=== PATIENT | female | born 1990 | race Caucasian/White ===

== ENCOUNTER → 2017-08-30 | Outpatient (REF) | payer OTHER, MEDICAID | LOC: M LAB REF 13:04 | PROVIDERS: ATTEND Advanced Practice Midwife | DX: Z34.82 Encounter for supervision of other normal pregnancy, second trimester (principal) ==

== ENCOUNTER → 2017-09-06 | Outpatient (CLI) | payer OTHER ==
--- NOTE | 2017-09-07 05:09 | REP ---
Clinical: Anatomical evaluation. Comparison: None . Findings: Examination demonstrates a single live intrauterine in cephalic presentation. motion is identified by technologist. Placenta is noted posteriorly and grade zero without evidence for placenta previa or abruption. Amniotic fluid volume is normal. Cervix measures 5.0 cm in length and appears closed. No evidence for nuchal cord. Gestational age by LMP 20 weeks 3 days with KISHORE 01/21/2018 . Gestational age by current measurements 21 weeks 0 days with KISHORE 01/17/2018 . FHR equals 144 beats per minute. BPD 5.0 cm 21 weeks 1 day HC 18.2 cm 20 weeks 4 days AC 14.9 cm 20 weeks 1 day FL 3.9 cm 22 weeks 4 days HL 3.5 cm 22 weeks 0 days HC/AC ratio 1.22 Estimated weight 407 grams ( 75th percentile). Anatomical assessment demonstrates normal structures including cranium, choroid plexus, cavum, cerebellum/posterior fossa, facial features, lungs, diaphragm, stomach, cord insertion/three-vessel cord, kidneys/bladder, spine, and extremities. Impression: Single live intrauterine in breech presentation demonstrating appropriate interval growth. Limited evaluation of the heart and cardiac ventricular outflow tracts noted. Remainder of the anatomical assessment is complete and normal. Signed by Benedict Seals MD 09/07/2017 05:00 A
== END ==
LOC: M SMT 09:05 → EDUNIT# 09:30
PROVIDERS: ATTEND Advanced Practice Midwife
DX: Z36.2 Encounter for other antenatal screening follow-up (principal)

== ENCOUNTER → 2017-10-26 | Outpatient (CLI) | payer OTHER ==
--- NOTE | 2017-10-26 16:20 | REP ---
Obstetric ultrasound for follow-up of anatomy: Comparison is 09/06/2017. On the comparison study the four-chamber view of the heart and the ventricular outflow tracts were not optimally demonstrated. There is a single intrauterine gestation in a vertex presentation. There is movement and cardiac activity with a heart rate of 153 beats per minute. The placenta is posterior. There is no placenta previa or abruptio. The placenta is grade 1 maturity. The amniotic fluid volume subjectively is normal. The amniotic fluid index is 15.2 (9.4 - 22.7). The cervix measures 4.3 cm in length. By today's ultrasound the gestational age is 28 weeks 1 day with an KISHORE of 01/17/2018. By the first ultrasound 27 weeks 4 days with KISHORE of 01/21/2018. weight is 1217 grams (2 pounds, 10 ounces). This is the 61st percentile for 27 weeks 4 days. On the study today the four-chamber view of the heart and left ventricular outflow tract are adequately demonstrated and are unremarkable. The right ventricular cardiac outflow tract is suboptimally at again demonstrated because of lie and maternal body habitus. The remainder of the anatomy was unremarkable previously and is not repeated today. Signed by Neville Pereira MD 10/26/2017 04:12 P
== END ==
LOC: M SMT 10:26
PROVIDERS: ATTEND Advanced Practice Midwife
DX: Z34.82 Encounter for supervision of other normal pregnancy, second trimester (principal)

== ENCOUNTER → 2017-12-13 | Outpatient (CLI) | payer OTHER ==
[2017-12-13 14:52] LABS: BASO % 0.2 % (0.0-1.0); EOS # 0.1 10^3/uL (0.0-0.50); EOS % 0.8 % (0.0-3.0); HEMATOCRIT 33.5 % (36.0-47.0); HEMOGLOBIN 11.3 g/dl (12.0-16.0); IMMATURE GRANULOCYTE # 0.1 10^3/uL (0-0); LYMPH # 2.6 10^3/uL (1.5-6.5); LYMPH % 20.6 % (24.0-44.0); MEAN CORPUSCULAR HEMOGLOBIN 32.6 pg (27.0-33.0); MEAN CORPUSCULAR HGB CONC 33.7 g/dl (32.0-36.5); MEAN CORPUSCULAR VOLUME 96.5 fl (80.0-96.0); MONO # 1.2 10^3/uL (0.0-0.8); MONO % 9.2 % (0.0-5.0); NEUTROPHILS # 8.8 10^3/uL (1.8-7.7); NEUTROPHILS % 68.2 % (36.0-66.0); PLATELET COUNT, AUTOMATED 202 10^3/uL (150-450); RED BLOOD COUNT 3.47 10^6/uL (4.00-5.40); RED CELL DISTRIBUTION WIDTH 12.2 % (11.5-14.5); WHITE BLOOD COUNT 12.8 10^3/uL (4.0-10.0)
[2017-12-13 15:40] LABS: GLUCOSE CHALLENGE TEST 1 HOUR 86 MG/DL (LESS THAN 140)
== END ==
LOC: M SMT 10:30
DX: O09.299 Supervision of pregnancy with other poor reproductive or obstetric history, unspecified trimester (principal); Z3A.36 36 weeks gestation of pregnancy
CPT/HCPCS: 82950

== ENCOUNTER 2018-01-11 05:58 | Inpatient (IN) | payer OTHER ==
[2018-01-11 07:06] LABS: HEMATOCRIT 34.6 % (36.0-47.0); HEMOGLOBIN 11.7 g/dl (12.0-16.0); MEAN CORPUSCULAR HEMOGLOBIN 32.4 pg (27.0-33.0); MEAN CORPUSCULAR HGB CONC 33.8 g/dl (32.0-36.5); MEAN CORPUSCULAR VOLUME 95.8 fl (80.0-96.0); PLATELET COUNT, AUTOMATED 148 10^3/uL (150-450); RED BLOOD COUNT 3.61 10^6/uL (4.00-5.40); RED CELL DISTRIBUTION WIDTH 12.2 % (11.5-14.5); WHITE BLOOD COUNT 9.9 10^3/uL (4.0-10.0)
[2018-01-11] MEDS: LACTATED RINGER'S 1000 ML IV (07:49)
[2018-01-11] MEDS: miSOPROStol 50 MCG 1/2 TAB (S0191) PO ×2 (07:50→11:53)
[2018-01-11] MEDS ORDERED: OXYTOCIN 30 UNITS IN 0.9% NaCl 500ML IV BAG (J2590) As Ordered (19:23)
[2018-01-11] MEDS: OXYTOCIN DRIP 30 UNITS in APPROPRIATE DILUENT 1 EA IV (19:42)
[2018-01-12] MEDS ORDERED: FENTANYL 2MCG/ML ROPIVACAINE 0.2% IN 0.9% NACL 200ML IVBAG As Ordered (00:11)
[2018-01-12] MEDS ORDERED: ONDANSETRON 4MG/2ML VIAL (J2405) IV ×3 (01:00→18:15)
[2018-01-12] MEDS ORDERED: EPIDURAL COMMENT XX (01:00)
[2018-01-12] MEDS ORDERED: diphenhydrAMINE INJ 50MG/ML VIAL (J1200) IV (01:00)
[2018-01-12] MEDS ORDERED: FENTANYL/ROPIVACAINE/NACL BAG 200 ML EPIDURAL (01:00)
[2018-01-12] MEDS ORDERED: NALOXONE INJ 0.4 MG/1 ML VIAL (J2310) IV ×3 (01:00→17:40)
[2018-01-12] MEDS ORDERED: EPIDURAL/PCA KEYS XX (01:00)
[2018-01-12] MEDS ORDERED: REFRIGERATOR IV KEYS XX (01:00)
[2018-01-12] MEDS ORDERED: ePHEDrine SULFATE 25 MG/5 ML(5MG/ML) SYRINGE IV (01:00)
[2018-01-12] MEDS: LACTATED RINGER'S 1000 ML IV (05:25)
[2018-01-12] MEDS ORDERED: ceFAZolin 2 GM/D5W 50 ML IV BAG (J0690 PER 500MG) As Ordered (16:42)
[2018-01-12] MEDS ORDERED: BICITRA 30ML SOLN UDC As Ordered (16:43)
[2018-01-12] MEDS: BICITRA 30ML SOLN UDC PO (16:56)
[2018-01-12] MEDS ORDERED: dexameTHASONE 4 MG/ML 1ML VIAL (J1100) As Ordered (17:25)
[2018-01-12] MEDS ORDERED: fentaNYL 100 MCG/2 ML INJECTION (J3010) As Ordered (17:25)
[2018-01-12] MEDS ORDERED: OXYTOCIN INJ 10 UNITS/ML VIAL (J2590) As Ordered (17:25)
[2018-01-12] MEDS ORDERED: ONDANSETRON 4MG/2ML VIAL (J2405) As Ordered (17:25)
[2018-01-12] MEDS ORDERED: MIDAZOLAM INJ 2 MG/2 ML VIAL (J2250) As Ordered (17:26)
[2018-01-12] MEDS ORDERED: KETAMINE HCL 200 MG/20 ML VIAL As Ordered (17:26)
[2018-01-12] MEDS ORDERED: MORPHINE PRES-FREE INJ 10 MG/10 ML VIAL (J2274) As Ordered (17:34)
[2018-01-12] MEDS ORDERED: METOCLOPRAMIDE INJ 10MG/2ML VIAL (J2765) IV ×2 (17:40→18:30)
[2018-01-12] MEDS ORDERED: NALBUPHINE HCL 10 MG/ML AMP (J2300) IV (17:40)
[2018-01-12] MEDS: LR 1,000 ML IV ×2 (18:06→18:30)
[2018-01-12] MEDS ORDERED: MEASLES,MUMPS,RUBELLA VACCINE INJ (MMR-II) (90707) SC (18:15)
[2018-01-12] MEDS ORDERED: RHOGAM 300 MCG (1500 IU) INJ (J2790) IM (18:15)
[2018-01-12] MEDS ORDERED: PERCOCET 5MG/325MG TAB PO ×2 (18:15→18:30)
[2018-01-12] MEDS ORDERED: ePHEDrine INJ 50 MG/ML VIAL As Ordered (18:16)
[2018-01-12] MEDS: fentaNYL 100 MCG/2 ML INJECTION (J3010) IV (18:24)
[2018-01-12] MEDS: ONDANSETRON 4MG/2ML VIAL (J2405) IV (18:25)
[2018-01-12] MEDS ORDERED: MEPERIDINE INJ 25 MG/ML VIAL (J2175) IV (18:30)
[2018-01-12] MEDS ORDERED: KETOROLAC 30 MG/ML VIAL (J1885) IV (19:00)
[2018-01-13] MEDS: KETOROLAC 30 MG/ML VIAL (J1885) IV ×4 (00:39→18:25)
[2018-01-13] MEDS: LR 1,000 ML IV ×3 (00:39→17:26)
[2018-01-13] MEDS ORDERED: KETOROLAC 30 MG/ML VIAL (J1885) As Ordered (05:52)
[2018-01-13 06:57] LABS: HEMATOCRIT 27.1 % (36.0-47.0); MEAN CORPUSCULAR HEMOGLOBIN 32.6 pg (27.0-33.0); MEAN CORPUSCULAR HGB CONC 33.6 g/dl (32.0-36.5); MEAN CORPUSCULAR VOLUME 97.1 fl (80.0-96.0); PLATELET COUNT, AUTOMATED 145 10^3/uL (150-450); RED BLOOD COUNT 2.79 10^6/uL (4.00-5.40); RED CELL DISTRIBUTION WIDTH 12.7 % (11.5-14.5); WHITE BLOOD COUNT 14.4 10^3/uL (4.0-10.0)
[2018-01-13 07:02] LABS: HEMOGLOBIN 9.1 g/dl (12.0-16.0)
[2018-01-13] MEDS: PRENATAL VITAMINS CHEWABLE TABLET PO (08:16)
[2018-01-13] MEDS: PERCOCET 5MG/325MG TAB PO (16:40)
[2018-01-14] MEDS: IBUPROFEN 800 MG TAB PO ×2 (01:54→09:34)
[2018-01-14] MEDS: PERCOCET 5MG/325MG TAB PO (04:30)
[2018-01-14] MEDS: PRENATAL VITAMINS CHEWABLE TABLET PO (09:32)
== END 2018-01-14 11:05 | disposition home or self-care (01) | DRG 540 ==
LOC: M LDI 05:58 → M OBS 01-12 20:00
PROVIDERS: Obstetrics & Gynecology
PROC: 10D00Z1 Extraction of Products of Conception, Low, Open Approach (ICD-10-PCS; principal; 2018-01-12 16:57)
PROC: 3E0DXGC Introduction of Other Therapeutic Substance into Mouth and Pharynx, External Approach (ICD-10-PCS; 2018-01-12 16:57)
DX: O62.0 Primary inadequate contractions (principal); Z87.59 Personal history of other complications of pregnancy, childbirth and the puerperium; Z37.0 Single live birth; Z3A.39 39 weeks gestation of pregnancy

== ENCOUNTER → 2018-12-16 | Outpatient (CLI) | payer OTHER ==
[~2018-12-16] MED LIST: IBUP-1114 PO; MAPA500T2 PO; OXYC1TAB23 PO; PRENTAB9 PO
--- NOTE | 2018-12-16 11:12 | REP ---
Clinical: Anatomical evaluation. Comparison: 12/13/2017 . Findings: Examination demonstrates a single live intrauterine in breech presentation. motion is identified by technologist. Placenta is noted posterior and grade grade 1 without evidence for placenta previa or abruption. Amniotic fluid volume is normal. Cervix measures 5.0 cm in length and appears closed. No evidence for nuchal cord. Gestational age by LMP 20 weeks 2 days with KISHORE 05/03/2019 . Gestational age by current measurements 19 weeks 6 days with KISHORE 05/06/2019 . FHR equals 160 beats per minute. BPD 4.6 cm 20 weeks 0 days HC 17.3 cm 19 weeks 6 days AC 14.8 cm 20 weeks 1 day FL 3.3 cm 20 weeks 3 days HL 3.2 cm 20 weeks 5 days HC/AC ratio 1.17 Estimated weight 339 grams ( 44th percentile). Anatomical assessment demonstrates normal structures including cranium, choroid plexus, cavum, cerebellum/posterior fossa, lungs, diaphragm, stomach, cord insertion/three-vessel cord, kidneys/bladder, spine, and extremities. Impression: 1. Single live intrauterine in breech presentation demonstrating appropriate interval growth. 2. Limited evaluation of the facial features, and heart/ventricular outflow tracts may warrant reevaluation and follow-up. Remainder of the anatomical assessment is complete and normal. Electronically Signed by Benedict Seals MD 12/16/2018 11:04 A
== END ==
LOC: M SMT 09:50
PROVIDERS: ATTEND Advanced Practice Midwife
DX: Z36.89 Encounter for other specified antenatal screening (principal); Z3A.19 19 weeks gestation of pregnancy